=== PATIENT | male | born 2000 | race Hispanic/Latino ===

== ENCOUNTER 2022-02-06 14:09 | Emergency (ER) | payer OTHER ==
[~2022-02-06] VITALS: Ht 180.3 cm; Wt 75.7 kg
[2022-02-06 14:12] VITALS: BP 112/72
[2022-02-06] MEDS ORDERED: IBUP-2070 PO (14:48)
== END 2022-02-06 16:17 | disposition home or self-care (01) ==
LOC: EDH 14:09
DX: S52.002A Unspecified fracture of upper end of left ulna, initial encounter for closed fracture (principal); W19.XXXA Unspecified fall, initial encounter; Y93.89 Activity, other specified; Y92.89 Other specified places as the place of occurrence of the external cause; Y99.8 Other external cause status
CPT/HCPCS: 29125; 73080